=== PATIENT | male | born 1975 | race Asian ===

== ENCOUNTER 2024-05-11 16:15 | Emergency (ER) | payer BC, OTHER ==
[~2024-05-11] VITALS: Ht 170.2 cm; Wt 72.6 kg
[2024-05-11] MEDS ORDERED: METOCLOPRAMIDE HCL 10 MG/2 ML VIAL ONE (16:33)
[2024-05-11] MEDS: METOCLOPRAMIDE HCL 10 MG/2 ML VIAL IV ONE (16:44)
[2024-05-11] MEDS: IV NORMAL SALINE 1000 ML BAG IV ONE (16:44)
[2024-05-11 16:57] LABS: BILIRUBIN,DIRECT 0.2 mg/dL (0.0-0.2); BILIRUBIN,TOTAL 0.8 mg/dL (0.2-1.0); CALCIUM 8.9 mg/dL (8.5-10.1); POTASSIUM 3.1 mmol/L (3.5-5.1); TOTAL PROTEIN, SERUM 7.8 g/dL (6.4-8.2)
[2024-05-11 17:00] LABS: BASOPHILS # (AUTO) 0.1 K/UL (0.0-0.2); BASOPHILS % (AUTO) 0.6 % (0.0-2.0); EOSINOPHILS # (AUTO) 0.1 K/uL (0.0-0.7); EOSINOPHILS % (AUTO) 1.1 % (0.0-7.0); HEMATOCRIT 39.2 % (36.7-47.1); HEMOGLOBIN 13.7 g/dL (12.5-16.3); LYMPHOCYTES # (AUTO) 2.5 K/uL (0.8-4.8); LYMPHOCYTES % (AUTO) 22.7 % (20.5-51.5); MEAN CORPUSCULAR HEMOGLOBIN 29.8 uug (23.8-33.4); MEAN CORPUSCULAR HGB CONC 35 g/dL (32.5-36.3); MEAN CORPUSCULAR VOLUME 85.4 fL (73.0-96.2); MONOCYTES # (AUTO) 0.7 K/uL (0.1-1.30); NEUTROPHILS # (AUTO) 7.6 K/uL (1.8-8.9); NEUTROPHILS % (AUTO) 69.6 % (38.5-71.5); PLATELET COUNT (AUTO) 405 K/uL (152-348); WHITE BLOOD COUNT (AUTO) 10.9 K/uL (3.6-10.2)
[2024-05-11] MEDS: IV LACTATED RINGERS SOLUTION 1,000 ML BAG IV ONE (17:09)
[2024-05-11] MEDS ORDERED: POTASSIUM BICARBONATE/CIT AC 25 MEQ TABLET.EFF ONE (17:18)
[2024-05-11] MEDS: POTASSIUM BICARBONATE/CIT AC 25 MEQ TABLET.EFF PO ONE (17:44)
[2024-05-11] MEDS ORDERED: METO-295 PO (18:06)
[2024-05-11 18:14] VITALS: BP 121/84; O2SAT 99
== END 2024-05-11 18:15 | disposition home or self-care (01) ==
LOC: ER 16:18
DX: R11.2 Nausea with vomiting, unspecified (principal); E86.0 Dehydration; Z79.899 Other long term (current) drug therapy
CPT/HCPCS: 99285; 96374; 96361; 80076; 80048; 83690; 85025; 36415; 93005; J2765; J7120; J7040; A4606; A4663